=== PATIENT | female | born 1995 | race Two or more races ===

== ENCOUNTER 2016-12-25 09:20 | Emergency (ER) | payer OTHER ==
[2016-12-25] MEDS ORDERED: LACTATED RINGERS 1,000 ML ONE (10:25)
[2016-12-25] MEDS ORDERED: ONDANSETRON 4 MG/2ML 2 ML VIAL ONE (10:25)
[2016-12-25 10:47] LABS: ABSOLUTE NEUTROPHIL COUNT 8.2 K/mm3 (1.8-7.7); BASO % 0.2 % (0.2-1.0); EOS % 0.2 % (0.9-2.9); HEMATOCRIT 37.7 % (37.0-47.0); HEMOGLOBIN 12.4 gm/l (12.0-16.0); IMM NEUT% 0.3 % (0-1); LYMPH # 2.1 (1.0-4.8); MEAN CELL VOLUME 84.2 fl (81.0-99.0); MEAN CORPUSCULAR HEMOGLOBIN 27.7 pg (27.0-31.0); MEAN CORPUSCULAR HGB CONC 32.9 g/dl (33.0-37.0); MEAN PLATELET VOLUME 9.9 fl (7.4-10.4); MONO # 0.6 (0.0-0.8); MONO % 5.3 % (4-12); PLATELET COUNT 299 K/mm3 (130-400)
[2016-12-25 10:47] LABS: URINE APPEARANCE CLEAR; URINE BILIRUBIN NEGATIVE (NEGATIVE); URINE BLOOD TRACE (NEGATIVE); URINE COLOR YELLOW; URINE GLUCOSE (UA) NEGATIVE (NEGATIVE); URINE LEUKOCYTE ESTERASE TRACE (NEGATIVE); URINE NITRITE POSITIVE (NEGATIVE); URINE PROTEIN NEGATIVE (NEGATIVE); URINE UROBILINOGEN NORMAL (0-1 mg/dl)
[2016-12-25 10:57] LABS: URINE BACTERIA 2+; URINE RBC 0-2 /hpf
[2016-12-25 11:03] LABS: ALB/GLOB RATIO 1.2 (>1.0); ALBUMIN 3.8 gm/dL (3.5-5.7); CALCIUM 9.2 mg/dL (8.6-10.3)
== END 2016-12-25 12:09 | disposition home or self-care (01) ==
LOC: ED 09:20
DX: R51 Headache (principal); R11.0 Nausea